=== PATIENT | female | born 1940 | race Caucasian/White ===

== ENCOUNTER → 2018-07-16 | Outpatient (CLI) | payer OTHER, BC | LOC: FIMAGING 12:32 | PROVIDERS: ATTEND Family Medicine | DX: N63.21 Unspecified lump in the left breast, upper outer quadrant (principal) ==

== ENCOUNTER 2018-08-09 10:12 | Observation (INO) | payer OTHER, BC | END 2018-08-11 16:20 | LOC: FSGY 10:12 → F3E 13:26 → F1N 14:20 ==